=== PATIENT | female | born 1960 ===

== ENCOUNTER 2017-12-20 09:57 | Outpatient (CLI) | payer OTHER ==
--- NOTE | 2017-12-20 13:44 | Ultrasound Report ---
ULTRASOUND GUIDED NEEDLE CORE BIOPSY OF A AXILLARY LYMPH NODE WITH CLIP PLACEMENT : 12/20/17 09:57:00 CLINICAL: Abnormal left axillary lymph node on mammogram. COMPARISON :12/05/17 FINDINGS: The procedure was explained to the patient and informed consent was obtained. Ultrasound demonstrated at least three nonenlarged left axillary lymph nodes. The skin in the axilla was prepped with Betadine and anesthetized with 1% lidocaine. Ultrasound guided needle core biopsy of a lymph node was performed through a small dermatotomy using 2% lidocaine with epinephrine for deep anesthesia and a 18-gauge Achieve biopsy device. 3 samples were obtained and placed in formalin. A clip was deployed within the lymph node. Hemostasis was achieved with minimal pressure and a sterile dressing was applied. The patient tolerated the procedure well and there were no apparent complications. A single view mammogram demonstrates satisfactory clip deployment in the axilla. The clip is superior to the previously identified lymph node on the mammogram. She was discharged in good condition and was given instructions for wound care and followup. IMPRESSION: Uncomplicated ultrasound-guided needle core biopsy of a left axillary lymph node with clip placement.
--- NOTE | 2017-12-20 16:08 | Mammography Report ---
LEFT DIGITAL DIAGNOSTIC MAMMOGRAM: 12/20/17 09:57:00 CLINICAL: For clip placement immediately status post needle biopsy of a left axillary lymph node . COMPARISON:12/05/17 FINDINGS: A biopsy clip is now identified in the left axilla and is superior to the dominant lymph node identified on the prior mammogram. IMPRESSION: Concordant clip placement status post ultrasound biopsy. BI-RADS CATEGORY: 4--Suspicious Pathology pending.
== END 2017-12-20 09:58 | disposition home or self-care (01) ==
LOC: SPVWC 09:57
PROVIDERS: ATTEND Surgery
DX: R59.9 Enlarged lymph nodes, unspecified (principal)
CPT/HCPCS: 38505; 76942; 88305; 88342